=== PATIENT | female | born 1970 | race Caucasian/White ===

== ENCOUNTER 2017-01-21 14:22 | Emergency (ER) | payer BC ==
[2017-01-21] MEDS ORDERED: HYDROmorphone 1 MG/ML Syringe IVPUSH ONE (14:57)
[2017-01-21] MEDS ORDERED: Ondansetron 4 MG/2 ML SDV IVPUSH ONE (14:57)
[2017-01-21] MEDS ORDERED: Sodium Chloride 0.9% 1,000 ML IV SCH (15:00)
--- NOTE | 2017-01-21 15:12 | EDM.PDOC ---
ED HPI GENERAL MEDICAL PROBLEM - General Chief Complaint: Abdominal Pain Stated Complaint: ABDOMINAL PAIN Time Seen by Provider: 01/21/17 14:30 Source of Information: Reports: Patient, Family (), RN Notes Reviewed History Limitations: Reports: No Limitations - History of Present Illness INITIAL COMMENTS - FREE TEXT/NARRATIVE: The patient states that she developed left-sided abdominal pain today, although was having some gassy discomfort yesterday. She describes today's pain as sharp in character. It has been waxing and waning. She states that it feels better if she presses on her left abdomen, otherwise, she has not identified any modifiers. She had some loose stools last night and earlier today, but no true diarrhea. No recent fever, nausea, vomiting, constipation, or urinary symptoms. No prior similar symptoms. The patient's last oral solid food was around 09:00 this morning. Her last oral liquid was around 14:10 this afternoon. The patient states that she underwent an EGD and colonoscopy in April 2016, which found only a single polyp, she believes in the stomach, and was otherwise normal. The patient's PCP is Dr. Gabriela Jackson. Left Lower Abdomen Pain Score (Numeric/FACES): 7 - Related Data Allergies Allergy/AdvReac Type Severity Reaction Status Date / Time codeine Allergy Hallucinati Verified 02/03/14 20:06 ons Home Meds: Home Meds Clonidine. 02/03/14 [History] Diclofenac. 02/03/14 [History] Past Medical History Cardiovascular History: Reports: High Cholesterol, Hypertension Genitourinary History: Reports: Chronic Renal Insuffiency, Urinary Incontinence (stress incontinence) Neurological History: Reports: Other (See Below) (Tic disorder) Endocrine/Metabolic History: Reports: Hypothyroidism (following thyroidectomy), Obesity/BMI 30+ Hematologic History: Reports: Anemia, Iron Deficiency Oncologic (Cancer) History: Reports: Cervix (BHASKAR), Leukemia (CLL), Thyroid (S/P thyroidectomy) - Past Surgical History HEENT Surgical History: Reports: Oral Surgery ([place] teeth extraction) Female Surgical History: Reports: Breast Reduction (bilateral), Other (See Below) (Cervical diathermy) Endocrine Surgical History: Reports: Thyroidectomy Social & Family History - Tobacco Use Smoking Status *Q: Never Smoker Second Hand Smoke Exposure: No - Caffeine Use Caffeine Use: Reports: Soda - Alcohol Use Alcohol Use History: Yes Days Per Week of Alcohol Use: 0 Alcohol Use Frequency: Rarely - Recreational Drug Use Recreational Drug Use: No - Living Situation & Occupation Living situation: Reports: , with Spouse, with Family (2 kids) Occupation: Unemployed ED ROS GENERAL - Review of Systems Review Of Systems: See Below Constitutional: Reports: No Symptoms HEENT: Reports: No Symptoms Respiratory: Reports: No Symptoms Cardiovascular: Reports: No Symptoms Endocrine: Reports: No Symptoms GI/Abdominal: Reports: No Symptoms : Reports: No Symptoms Musculoskeletal: Reports: No Symptoms Skin: Reports: No Symptoms Neurological: Reports: No Symptoms Psychiatric: Reports: No Symptoms Hematologic/Lymphatic: Reports: No Symptoms Immunologic: Reports: No Symptoms ED EXAM, GI/ABD - Physical Exam Exam: See Below Exam Limited By: No Limitations General Appearance: Alert, WD/WN, No Apparent Distress Eyes: Bilateral: Normal Appearance, EOMI Ears: Normal External Exam, Hearing Grossly Normal Nose: Normal Inspection, No Blood Throat/Mouth: Normal Inspection, Normal Lips, Normal Voice, No Airway Compromise Head: Atraumatic, Normocephalic Neck: Normal Inspection, Full Range of Motion Respiratory/Chest: No Respiratory Distress, Lungs Clear, Normal Breath Sounds, No Accessory Muscle Use Cardiovascular: Normal Peripheral Pulses, Regular Rate, Rhythm, No Gallop, No JVD, No Murmur, No Rub GI/Abdominal Exam: Soft, No Organomegaly, No Distention, No Abnormal Bruit, No Mass, Pelvis Stable, Tender (From the left upper quadrant through to the left lower quadrant, and including the suprapubic region. Nontender on the right.), Abnormal Bowel Sounds (Decreased bowel sounds), Other (Obese) (Female) Exam: Deferred Rectal (Female) Exam: Deferred Back Exam: Normal Inspection, Full Range of Motion. No: CVA Tenderness (L), CVA Tenderness (R) Extremities: Normal Inspection, Normal Range of Motion, No Pedal Edema, Normal Capillary Refill Neurological: Alert, Oriented, Normal Cognition, No Motor/Sensory Deficits Psychiatric: Normal Affect Skin Exam: Warm, Dry, Intact, Normal Color, No Rash Lymphatic: No Adenopathy Course - Vital Signs Last Recorded V/S: Last Vital Signs Temp 37.1 C 01/21/17 14:29 Pulse 102 H 01/21/17 14:29 Resp 18 01/21/17 14:29 BP 167/106 H 01/21/17 14:29 Pulse Ox 96 01/21/17 14:29 - Orders/Labs/Meds Orders: Active Orders 24 hr Category Date Time Status Abdomen Pelvis w Cont [CT] Stat Exams 01/21/17 14:57 Taken CULTURE URINE [RM] Stat Lab 01/21/17 15:10 Received Sodium Chloride 0.9% [Normal Saline] 1,000 ml Med 01/21/17 15:00 Active IV ASDIRECTED Sodium Chloride 0.9% [Saline Flush] Med 01/21/17 17:26 Active 10 ml FLUSH ONETIME PRN Medication Orders Sodium Chloride (Normal Saline) 1,000 mls @ 150 mls/hr IV ASDIRECTED GARTH Last Admin: 01/21/17 15:53 Dose: 150 mls/hr Sodium Chloride (Saline Flush) 10 ml FLUSH ONETIME PRN PRN Reason: IV FLUSH Last Admin: 01/21/17 17:48 Dose: 10 ml Labs: Laboratory Tests 01/21/17 01/21/17 01/21/17 Range/Units 15:10 15:10 15:15 WBC 12.04 H (3.98-10.04) K/mm3 RBC 5.29 H (3.98-5.22) M/mm3 Hgb 14.2 (11.2-15.7) gm/L Hct 43.0 (34.1-44.9) % MCV 81.3 (79.4-94.8) fl MCH 26.8 (25.6-32.2) pg MCHC 33.0 (32.2-35.5) g/dl RDW Std Deviation 40.3 (36.4-46.3) fL Plt Count 146 L (182-369) K/mm3 MPV 9.4 (9.4-12.3) fl Neutrophils % (Manual) 53 (40-60) % Band Neutrophils % 2 (0-10) % Lymphocytes % (Manual) 38 (20-40) % Atypical Lymphs % 0 % Monocytes % (Manual) 6 (2-10) % Eosinophils % (Manual) 1 (0.7-5.8) % Basophils % (Manual) 0 L (0.1-1.2) Platelet Estimate Adequate Plt Morphology Comment Normal RBC Morph Comment Normal Sodium (136-145) mEq/L Potassium (3.5-5.1) mEq/L Chloride (98-107) mEq/L Carbon Dioxide (21-32) mEq/L Anion Gap (5-15) BUN (7-18) mg/dL Creatinine (0.55-1.02) mg/dL Est Cr Clr Drug Dosing mL/min Estimated GFR (MDRD) (>60) mL/min BUN/Creatinine Ratio (14-18) Glucose (74-106) mg/dL Calcium (8.5-10.1) mg/dL Total Bilirubin (0.2-1.0) mg/dL AST (15-37) U/L ALT (14-59) U/L Alkaline Phosphatase (46-116) U/L Total Protein (6.4-8.2) g/dl Albumin (3.4-5.0) g/dl Globulin gm/dL Albumin/Globulin Ratio (1-2) Lipase (73-393) U/L Urine Color Yellow (Yellow) Urine Appearance Clear (Clear) Urine pH 7.0 (5.0-8.0) Ur Specific Stewart 1.020 (1.005-1.030) Urine Protein 1+ H (Negative) Urine Glucose (UA) Negative (Negative) Urine Ketones Negative (Negative) Urine Occult Blood Negative (Negative) Urine Nitrite Negative (Negative) Urine Bilirubin Negative (Negative) Urine Urobilinogen 0.2 (0.2-1.0) Ur Leukocyte Esterase Trace H (Negative) Urine RBC 0-5 (0-5) /hpf Urine WBC 0-5 (0-5) /hpf Ur Epithelial Cells 10-20 H (0-5) /hpf Urine Bacteria Moderate H (FEW) /hpf Urine Mucus Few (FEW) /hpf Urine HCG, Qual Negative (NEGATIVE) 01/21/17 Range/Units 15:15 WBC (3.98-10.04) K/mm3 RBC (3.98-5.22) M/mm3 Hgb (11.2-15.7) gm/L Hct (34.1-44.9) % MCV (79.4-94.8) fl MCH (25.6-32.2) pg MCHC (32.2-35.5) g/dl RDW Std Deviation (36.4-46.3) fL Plt Count (182-369) K/mm3 MPV (9.4-12.3) fl Neutrophils % (Manual) (40-60) % Band Neutrophils % (0-10) % Lymphocytes % (Manual) (20-40) % Atypical Lymphs % % Monocytes % (Manual) (2-10) % Eosinophils % (Manual) (0.7-5.8) % Basophils % (Manual) (0.1-1.2) Platelet Estimate Plt Morphology Comment RBC Morph Comment Sodium 136 (136-145) mEq/L Potassium 4.2 (3.5-5.1) mEq/L Chloride 105 (98-107) mEq/L Carbon Dioxide 21 (21-32) mEq/L Anion Gap 14.2 (5-15) BUN 11 (7-18) mg/dL Creatinine 0.7 (0.55-1.02) mg/dL Est Cr Clr Drug Dosing 102.38 mL/min Estimated GFR (MDRD) > 60 (>60) mL/min BUN/Creatinine Ratio 15.7 (14-18) Glucose 111 H (74-106) mg/dL Calcium 8.7 (8.5-10.1) mg/dL Total Bilirubin 1.0 (0.2-1.0) mg/dL AST 22 (15-37) U/L ALT 24 (14-59) U/L Alkaline Phosphatase 69 (46-116) U/L Total Protein 7.3 (6.4-8.2) g/dl Albumin 3.8 (3.4-5.0) g/dl Globulin 3.5 gm/dL Albumin/Globulin Ratio 1.1 (1-2) Lipase 129 (73-393) U/L Urine Color (Yellow) Urine Appearance (Clear) Urine pH (5.0-8.0) Ur Specific Stewart (1.005-1.030) Urine Protein (Negative) Urine Glucose (UA) (Negative) Urine Ketones (Negative) Urine Occult Blood (Negative) Urine Nitrite (Negative) Urine Bilirubin (Negative) Urine Urobilinogen (0.2-1.0) Ur Leukocyte Esterase (Negative) Urine RBC (0-5) /hpf Urine WBC (0-5) /hpf Ur Epithelial Cells (0-5) /hpf Urine Bacteria (FEW) /hpf Urine Mucus (FEW) /hpf Urine HCG, Qual (NEGATIVE) Meds: Medications Generic Name Dose Route Start Last Admin Trade Name Freq PRN Reason Stop Dose Admin Sodium Chloride 1,000 mls @ 150 mls/hr 01/21/17 15:00 01/21/17 15:53 Normal Saline IV 150 mls/hr ASDIRECTED GARTH Administration Sodium Chloride 10 ml 01/21/17 17:26 01/21/17 17:48 Saline Flush FLUSH 10 ml ONETIME PRN Administration IV FLUSH Discontinued Medications Generic Name Dose Route Start Last Admin Trade Name Freq PRN Reason Stop Dose Admin Diatrizoate Meglum/Diatrizoate Sod 90 ml 01/21/17 17:26 01/21/17 17:48 Gastrografin 37% PO 01/21/17 17:27 90 ml ONETIME ONE Administration Hydromorphone HCl 1 mg 01/21/17 14:57 01/21/17 15:53 Dilaudid IVPUSH 01/21/17 14:58 1 mg ONETIME ONE Administration Iopamidol 125 ml 01/21/17 17:26 01/21/17 17:48 Isovue-300 (61%) IVPUSH 01/21/17 17:27 125 ml ONETIME ONE Administration Ondansetron HCl 4 mg 01/21/17 14:57 01/21/17 16:00 Zofran IVPUSH 01/21/17 14:58 4 mg ONETIME ONE Administration - Re-Assessments/Exams Free Text/Narrative Re-Assessment/Exam: 01/21/17 15:44 The patient's urinalysis demonstrates trace of is that esterase, 10-20 epithelial cells and moderate bacteria. I believe this is most consistent with contamination, not a UTI. I have ordered a urine culture, but I am not going to treat for a UTI based on this urinalysis. 01/21/17 18:54 CT of the abdomen and pelvis with oral and IV contrast is read by [facility] as: 1. 5.9 cm left ovarian cyst. This may be large enough to be producing left- sided abdominal pain. The cyst is a simple cyst and could be further evaluated with pelvic ultrasound if clinically indicated. 2. Nonspecific enlargement of the periaortic, iliac and inguinal lymph nodes. If clinically indicated the nodes could be further evaluated with PET scan. 01/21/17 18:58 Test results discussed with the patient and her . Today's workup indicates that the patient has a large left simple ovarian cyst. Treatment is ibuprofen. I will discharge her home. Departure - Departure Time of Disposition: 18:59 Disposition: Home, Self-Care 01 Condition: Good Clinical Impression: Left ovarian cyst - Discharge Information Referrals: Gabriela Jackson DO [Primary Care Provider] - Forms: ED Department Discharge Additional Instructions: You were seen in the emergency room for left-sided abdominal pain. Workup in the ER included blood work, a urinalysis, a urine test, and a CT scan of your abdomen and pelvis. The CT scan findings that you have a 5.9 cm left ovarian simple cyst, which is likely the cause of your pain. We recommend he take [id number] ibuprofen as needed for discomfort. A sample of urine was sent for culture. We recommend you follow-up with your PCP, Dr. Gabriela Jackson, in 3 days to check on the urine culture results, to make sure that you do not have a urinary tract infection. If any other problems, please do not hesitate to return to the ER. - My Orders Last 24 Hours: My Active Orders 01/21/17 14:57 Abdomen Pelvis w Cont [CT] Stat 01/21/17 15:00 Sodium Chloride 0.9% [Normal Saline] 1,000 ml IV ASDIRECTED 01/21/17 15:10 CULTURE URINE [RM] Stat 01/21/17 17:26 Sodium Chloride 0.9% [Saline Flush] 10 ml FLUSH ONETIME PRN - Assessment/Plan Last 24 Hours: My Active Orders 01/21/17 14:57 Abdomen Pelvis w Cont [CT] Stat 01/21/17 15:00 Sodium Chloride 0.9% [Normal Saline] 1,000 ml IV ASDIRECTED 01/21/17 15:10 CULTURE URINE [RM] Stat 01/21/17 17:26 Sodium Chloride 0.9% [Saline Flush] 10 ml FLUSH ONETIME PRN
[2017-01-21] MEDS ORDERED: Diatrizoate Meglumine/Diatrizoate Sodium 37% 120 ML Bottle PO ONE (17:26)
[2017-01-21] MEDS ORDERED: Iopamidol 612 MG/ML 150 ML Bottle IVPUSH ONE (17:26)
[2017-01-21] MEDS ORDERED: Sodium Chloride 0.9% 10 ML Syringe FLUSH PRN (17:26)
[2017-01-21 19:24] VITALS: BP 135/83
--- NOTE | 2017-01-22 08:33 | CT ---
CT abdomen and pelvis Technique: Multiple axial sections were obtained from above the dome of the diaphragm inferiorly through the pubic symphysis. Intravenous and oral contrast was utilized. Delayed images were also obtained through the bladder. Comparison: No previous CT abdomen or pelvis exam. Findings: Visualized lung bases show nothing acute. Liver shows no focal abnormality. Spleen appears within normal limits. Adrenal glands show no nodule. Pancreas is within normal limits. Kidneys show symmetric contrast enhancement without hydronephrosis or mass. Aorta shows no aneurysmal dilatation. Mildly prominent retroperitoneal lymph nodes are seen. Lymph nodes are seen to extend into the iliac chain. Largest lymph node is about 3.0 cm. No mesenteric abnormalities are seen. Appendix is seen which appears normal. 6 cm cyst is identified within the left ovary. No free fluid is seen. No inflammatory change is identified. No bowel dilatation is seen. Delayed images show contrast within the distal ureters and within the bladder. Bone window settings were reviewed appearing within normal limits for the patient's age. Impression: 1. Mildly prominent retroperitoneal and iliac lymph nodes. Largest lymph node measures about 3.0 cm. Difficult to exclude early lymphoproliferative neoplasm. Consider PET scan to further evaluate. 2. 6 cm cyst within the left ovary without evidence of rupture or leakage at this time. 3. No additional abnormality is identified on CT study of the abdomen and pelvis. Diagnostic code #9 I agree with preliminary report issued by [facility] ([facility] preliminary report dictated on 01/21/17, 7:39 PM Central Time)
== END 2017-01-21 19:15 | disposition home or self-care (01) ==
LOC: EEVIPCON 14:22 → JD.ED 14:22
DX: N83.202 Unspecified ovarian cyst, left side (principal); I12.9 Hypertensive chronic kidney disease with stage 1 through stage 4 chronic kidney disease, or unspecified chronic kidney disease; E78.00 Pure hypercholesterolemia, unspecified; N18.9 Chronic kidney disease, unspecified; E03.9 Hypothyroidism, unspecified; E66.9 Obesity, unspecified; Z86.2 Personal history of diseases of the blood and blood-forming organs and certain disorders involving the immune mechanism; Z88.5 Allergy status to narcotic agent; Z98.890 Other specified postprocedural states; Z68.38 Body mass index [BMI] 38.0-38.9, adult
CPT/HCPCS: 36415; 74177; 80053; 81001; 81025; 83690; 85025; 87086; 96361; 96374; 96375; 99284; J1170; J2405; J7040; J7050; P9612; Q9963; Q9967

== ENCOUNTER 2017-11-22 15:42 | Emergency (ER) | payer SELFPAY ==
[2017-11-22 16:12] VITALS: BP 134/94
--- NOTE | 2017-11-22 18:00 | EDM.PDOC ---
<Lidia Cannon M - Last Filed: 11/22/17 17:50> ED HPI GENERAL MEDICAL PROBLEM - General Chief Complaint: Respiratory Problem Stated Complaint: COUGH/RUNNY NOSE X 6 WKS Time Seen by Provider: 11/22/17 18:15 Source of Information: Reports: Patient History Limitations: Reports: No Limitations - History of Present Illness INITIAL COMMENTS - FREE TEXT/NARRATIVE: Patient comes in today for chief complaint of cough, rhinorrhea, and fatigue. Patient has had a cough for six weeks, she was seen by her PCP two weeks ago who prescribed Azithromycin. Patient did not experience much relief of symptoms since completing the abx within the last 1-2 weeks. Over the last three days, she has been feeling increasingly fatigued and weak. Associated symptoms include fatigue, cough, clear/yellow sputum, rhinorrhea, sinus congestion, and sinus pressure. Patient has tried taking Mucinex for the last week and tried a emilee pot today. The mucinex helped alleviate her symptoms initially. Patient denies fever, sore throat, nausea, vomiting, or constipation. Onset: Other (6 weeks ago) Duration: Chronic, Getting Worse Improves with: Reports: None Associated Symptoms: Reports: Cough. Denies: Fever/Chills, Nausea/Vomiting, Shortness of Breath Treatments BREAKER LAYER: Reports: Home Treatments (Mucinex and emilee pot) Chest Pain Score (Numeric/FACES): 4 - Related Data Allergies Allergy/AdvReac Type Severity Reaction Status Date / Time codeine Allergy Hallucinati Verified 02/03/14 20:06 ons Home Meds: Home Meds Amoxicillin/Clavulanate K [Augmentin 875-125 MG] 1 tab PO BID #20 tab 11/22/17 [ Rx] Diclofenac Sodium [Voltaren] 50 mg PO BID 11/22/17 [History] Fluticasone Propionate [Flovent] 2 spray INH DAILY 11/22/17 [History] Levothyroxine 75 mcg PO DAILY 11/22/17 [History] Losartan Potassium 25 mg PO DAILY 11/22/17 [History] methylPREDNISolone [Methylprednisolone] 4 mg PO ASDIRECTED 11/22/17 [History] Past Medical History Cardiovascular History: Reports: High Cholesterol, Hypertension Genitourinary History: Reports: Chronic Renal Insuffiency, Urinary Incontinence Neurological History: Reports: Other (See Below) Endocrine/Metabolic History: Reports: Hypothyroidism, Obesity/BMI 30+ Hematologic History: Reports: Anemia, Iron Deficiency Oncologic (Cancer) History: Reports: Cervix, Leukemia, Thyroid - Past Surgical History HEENT Surgical History: Reports: Oral Surgery Female Surgical History: Reports: Breast Reduction, Other (See Below) Endocrine Surgical History: Reports: Thyroidectomy Social & Family History - Tobacco Use Smoking Status *Q: Never Smoker - Caffeine Use Caffeine Use: Reports: Soda - Recreational Drug Use Recreational Drug Use: No - Living Situation & Occupation Living situation: Reports: , with Spouse, with Family (2 kids) Occupation: Unemployed ED ROS GENERAL - Review of Systems Constitutional: Reports: Fatigue. Denies: Fever, Chills, Diaphoresis HEENT: Reports: Rhinitis. Denies: Throat Pain Respiratory: Reports: Cough, Sputum. Denies: Shortness of Breath, Wheezing Cardiovascular: Denies: Chest Pain GI/Abdominal: Denies: Abdominal Pain, Constipation, Diarrhea, Nausea, Vomiting ED EXAM, GENERAL - Physical Exam Exam Limited By: No Limitations General Appearance: Alert, WD/WN, No Apparent Distress Nose: Nasal Drainage, Clear Rhinorrhea, Other (boggy, erythematous nasal mucosa bilaterally) Neck: Normal Inspection, Supple, Non-Tender Respiratory/Chest: No Respiratory Distress, Lungs Clear, Normal Breath Sounds, No Accessory Muscle Use, Chest Non-Tender. No: Decreased Breath Sounds, Crackles, Rales, Rhonchi, Wheezing, Stridor, Pleural Rub, Accessory Muscle Use, Prolonged Expiration Cardiovascular: Normal Peripheral Pulses, Regular Rate, Rhythm, No Murmur GI/Abdominal: Normal Bowel Sounds, Soft, Non-Tender, No Distention Course - Vital Signs Last Recorded V/S: Last Vital Signs Temp 98.1 F 11/22/17 16:10 Pulse 94 11/22/17 16:10 Resp 20 11/22/17 16:10 BP 134/94 H 11/22/17 16:10 Pulse Ox 97 11/22/17 16:10 - Orders/Labs/Meds Labs: Laboratory Tests 11/22/17 11/22/17 11/22/17 Range/Units 17:21 18:35 18:35 WBC 10.03 (3.98-10.04) K/mm3 RBC 5.27 H (3.98-5.22) M/mm3 Hgb 13.3 (11.2-15.7) gm/L Hct 40.5 (34.1-44.9) % MCV 76.9 L (79.4-94.8) fl MCH 25.2 L (25.6-32.2) pg MCHC 32.8 (32.2-35.5) g/dl RDW Std Deviation 39.0 (36.4-46.3) fL Plt Count 181 L (182-369) K/mm3 MPV 8.7 L (9.4-12.3) fl Neutrophils % (Manual) 59 (40-60) % Band Neutrophils % 0 (0-10) % Lymphocytes % (Manual) 25 (20-40) % Atypical Lymphs % 0 % Monocytes % (Manual) 11 H (2-10) % Eosinophils % (Manual) 4 (0.7-5.8) % Basophils % (Manual) 1 (0.1-1.2) Platelet Estimate Adequate Plt Morphology Comment Normal Microcytosis 3+ marked RBC Morph Comment Not Reportable Sodium 138 (136-145) mEq/L Potassium 3.7 (3.5-5.1) mEq/L Chloride 102 (98-107) mEq/L Carbon Dioxide 22 (21-32) mEq/L Anion Gap 17.7 H (5-15) BUN 7 (7-18) mg/dL Creatinine 0.7 (0.55-1.02) mg/dL Est Cr Clr Drug Dosing 101.30 mL/min Estimated GFR (MDRD) > 60 (>60) mL/min BUN/Creatinine Ratio 10.0 L (14-18) Glucose 96 (74-106) mg/dL Calcium 8.6 (8.5-10.1) mg/dL Total Bilirubin 0.5 (0.2-1.0) mg/dL AST 19 (15-37) U/L ALT 20 (14-59) U/L Alkaline Phosphatase 77 (46-116) U/L Total Protein 7.5 (6.4-8.2) g/dl Albumin 3.8 (3.4-5.0) g/dl Globulin 3.7 gm/dL Albumin/Globulin Ratio 1.0 (1-2) Urine Color Yellow (Yellow) Urine Appearance Clear (Clear) Urine pH 7.0 (5.0-8.0) Ur Specific [place] 1.020 (1.005-1.030) Urine Protein 1+ H (Negative) Urine Glucose (UA) Negative (Negative) Urine Ketones Negative (Negative) Urine Occult Blood Negative (Negative) Urine Nitrite Negative (Negative) Urine Bilirubin Negative (Negative) Urine Urobilinogen 1.0 (0.2-1.0) Ur Leukocyte Esterase Negative (Negative) Urine RBC 0-5 (0-5) /hpf Urine WBC 5-10 H (0-5) /hpf Ur Epithelial Cells 5-10 H (0-5) /hpf Urine Bacteria Few (FEW) /hpf Urine Mucus Moderate H (FEW) /hpf Departure - Departure Disposition: Home, Self-Care 01 Clinical Impression: Sinusitis - Discharge Information Prescriptions: Amoxicillin/Clavulanate K [Augmentin 875-125 MG] 1 tab PO BID #20 tab Instructions: Sinusitis, Adult, [id number] Referrals: Олег Cherry MD [Primary Care Provider] - Forms: ED Department Discharge Additional Instructions: take the augmentin 1 tab PO bid x 10 days. Take with food. Recommend yogurt or a probiotic to help reduce side effects of upset stomach. recommend OTC afrin. Take as directed. Do not take more than 5 days in a row. Follow-up with PCP or ENT in 7-14 days for a recheck of your symptoms. OTC tylneol or motrin as needed for discomfort. Rest. Make sure you are drinking plenty of fluids. Please return to the ER should your symptoms change or worsen. <Annette Eric - Last Filed: 11/24/17 11:32> ED HPI GENERAL MEDICAL PROBLEM - History of Present Illness INITIAL COMMENTS - FREE TEXT/NARRATIVE: I have seen the patient and agree with the HPI as documented by ANU Collins ED ROS GENERAL - Review of Systems Review Of Systems: See Below HEENT: Reports: Sinus Problem (reports sinuus pressure) Neurological: Reports: Headache ED EXAM, GENERAL - Physical Exam Exam: See Below General Appearance: Other (acutely ill appearing) Eye Exam: Bilateral Eye: Normal Inspection Ears: Normal External Exam, Normal Canal, Hearing Grossly Normal, Normal TMs Throat/Mouth: Normal Inspection, Normal Lips, Normal Oropharynx, Normal Voice, No Airway Compromise Head: Sinus Tenderness (bilateral maxillary sinus pressure) Neurological: Alert, Oriented, Normal Cognition Psychiatric: Normal Affect, Normal Mood Skin Exam: Warm, Dry, Normal Color Course - Radiology Interpretation Free Text/Narrative:: CT of the max face without contract impression per [facility]: Bilateral ethmoid sinusitis. Mild inflammatory changes the maxillary and right sphenoid sinuses. chest xray shows no acute intrathroacic process. - Re-Assessments/Exams Free Text/Narrative Re-Assessment/Exam: 11/22/17 18:35 I have seen the patient and agree with the HPI, ROS and PE as documented by ANU Collins. Recommending a CT of the sinuses due to the length of her symptoms and no response to antibiotics. I believe the cough she is experiencing is more from post nasal drip. Patient is in agreement. 11/22/17 20:17 I reviewed the labs and imaging with the patient. Will start on augmentin for a sinus infection. Follow-up in clinic. Recommended a few days of afrin for the congestion. Discharge instructions as documented. Departure - Departure Time of Disposition: 20:17 Condition: Fair
--- NOTE | 2017-11-25 11:15 | CT ---
CT paranasal sinuses Technique: Multiple axial sections through the paranasal sinuses were obtained. Reconstructed coronal and sagittal images were reviewed. Findings: Mild mucosal thickening is seen within the ethmoid sinuses. Moderate mucosal thickening is seen within the ethmoid sinuses as well as mild mucosal thickening within the right side of the sphenoid sinus. No air-fluid levels are seen. Ost[place] of the left maxillary sinus shows mucosal thickening with lesser mucosal thickening within the ostia of the right maxillary sinus. No nasal septal deviation is seen. No acute bony abnormality is seen. Impression: 1. Sinus findings as noted above most likely chronic. Diagnostic code #3 I agree with preliminary report from [facility], finalized at 11/22/17, 8:57 PM Central Time
--- NOTE | 2017-11-25 11:15 | CR ---
Chest: Two views of the chest were obtained. Comparison: Prior chest x-ray of 02/03/14. Heart size and mediastinum are normal. Lungs are clear. Minimal scoliosis is seen. Surgical clips are seen on the lateral view. Impression: 1. Nothing acute is seen on two-view chest x-ray. Diagnostic code #2
== END 2017-11-22 20:31 | disposition home or self-care (01) ==
LOC: JD.ED 15:42
DX: J32.9 Chronic sinusitis, unspecified (principal); I12.9 Hypertensive chronic kidney disease with stage 1 through stage 4 chronic kidney disease, or unspecified chronic kidney disease; N18.9 Chronic kidney disease, unspecified; E03.9 Hypothyroidism, unspecified; D50.9 Iron deficiency anemia, unspecified; Z88.5 Allergy status to narcotic agent; Z79.899 Other long term (current) drug therapy
CPT/HCPCS: 36415; 70486; 70486-26; 71046; 71046-26; 80053; 81001; 85007; 85027; 99284-25

== ENCOUNTER 2020-03-16 18:29 | Emergency (ER) | payer MEDICARE ==
[2020-03-16 18:48] VITALS: BP 195/96; PULSE 85
--- NOTE | 2020-03-16 21:05 | EDM.PDOC ---
ED HPI GENERAL MEDICAL PROBLEM - General Chief Complaint: Respiratory Problem Stated Complaint: LUNGS FEEL HOT SOB Time Seen by Provider: 03/16/20 19:13 Source of Information: Reports: Patient, RN Notes Reviewed - History of Present Illness INITIAL COMMENTS - FREE TEXT/NARRATIVE: 49 yr old female with cough, burning discomfort upper chest for about the past 4 days. she has 2 children at home and a who have been having sx suggestive for covid with cough, fever, myalgias for about the past 10 days. They have all been isolating. She does not feel that sick but with her past health hx has been advised, make sure she doesnt have pneumonia. - Related Data Allergies Allergy/AdvReac Type Severity Reaction Status Date / Time cefdinir Allergy Other Verified 03/16/20 18:48 codeine Allergy Hallucinati Verified 03/16/20 18:48 ons lisinopril Allergy Other Verified 03/16/20 18:48 Home Meds: Home Meds Diclofenac Sodium [Voltaren] 50 mg PO BID PRN 11/22/17 [History] Fluticasone Propionate [Flovent] 2 spray INH DAILY 11/22/17 [History] Levothyroxine 75 mcg PO DAILY 11/22/17 [History] Losartan Potassium 25 mg PO DAILY 11/22/17 [History] Cyclobenzaprine [Flexeril] 5 mg PO TID PRN 03/16/20 [History] Ferrous Sulfate [Iron] 325 mg PO DAILY 03/16/20 [History] Omeprazole 20 mg PO BEDTIME 03/16/20 [History] Past Medical History Cardiovascular History: Reports: High Cholesterol, Hypertension Genitourinary History: Reports: Chronic Renal Insuffiency, Urinary Incontinence Neurological History: Reports: Other (See Below) Endocrine/Metabolic History: Reports: Hypothyroidism, Obesity/BMI 30+ Hematologic History: Reports: Anemia, Iron Deficiency Oncologic (Cancer) History: Reports: Cervix, Leukemia, Thyroid - Past Surgical History HEENT Surgical History: Reports: Oral Surgery Female Surgical History: Reports: Breast Reduction Endocrine Surgical History: Reports: Thyroidectomy Social & Family History - Tobacco Use Tobacco Use Status *Q: Never Tobacco User - Caffeine Use Caffeine Use: Reports: Soda - Recreational Drug Use Recreational Drug Use: No - Living Situation & Occupation Living situation: Reports: , with Spouse, with Family (2 kids) Occupation: Unemployed ED ROS GENERAL - Review of Systems Review Of Systems: See Below Constitutional: Denies: Fever, Chills HEENT: Reports: Rhinitis. Denies: Throat Pain Respiratory: Reports: Cough (occasional). Denies: Shortness of Breath Cardiovascular: Reports: Chest Pain (burning discomfort upper chest) GI/Abdominal: Denies: Abdominal Pain, Diarrhea, Vomiting Musculoskeletal: Reports: No Symptoms Skin: Reports: No Symptoms Neurological: Reports: No Symptoms ED EXAM, GENERAL - Physical Exam Exam: See Below General Appearance: Alert, No Apparent Distress Head: Atraumatic Neck: Supple Respiratory/Chest: No Respiratory Distress, Lungs Clear, Normal Breath Sounds. No: Rhonchi, Wheezing Cardiovascular: Regular Rate, Rhythm Extremities: Normal Inspection, Normal Range of Motion Neurological: Alert, Oriented, No Motor/Sensory Deficits Skin Exam: Warm, Dry, Normal Color Course - Vital Signs Last Recorded V/S: Last Vital Signs Temp 97.1 F 03/16/20 18:45 Pulse 85 03/16/20 18:45 Resp 18 03/16/20 18:45 BP 195/96 H 03/16/20 18:45 Pulse Ox 98 03/16/20 18:45 - Orders/Labs/Meds Orders: Active Orders 24 hr Category Date Time Status Chest 1V Frontal [CR] Stat Exams 03/16/20 19:14 Taken CORONAVIRUS COVID-19 PCR PHL Stat Lab 03/16/20 21:24 Received - Re-Assessments/Exams Free Text/Narrative Re-Assessment/Exam: 03/16/20 22:47 CXR nl Departure - Departure Time of Disposition: 21:02 Disposition: Home, Self-Care 01 Condition: Fair Clinical Impression: Viral syndrome - Discharge Information Instructions: Viral Illness, Adult Referrals: Олег Cherry MD [Primary Care Provider] - Forms: ED Department Discharge Additional Instructions: Rest. Continue to self isolate. Return to ED as needed, especially for any severe difficulty breathing. Results from covid screen will be called to you as soon as they are available, usually 2 to 3 days. Sepsis Event Note (ED) - Evaluation Sepsis Screening Result: No Definite Risk - Focused Exam Vital Signs: Vital Signs Temp Pulse Resp BP Pulse Ox 03/16/20 18:45 97.1 F 85 18 195/96 H 98 - My Orders Last 24 Hours: My Active Orders 03/16/20 19:14 Chest 1V Frontal [CR] Stat 03/16/20 21:24 CORONAVIRUS COVID-19 PCR PHL Stat - Assessment/Plan Last 24 Hours: My Active Orders 03/16/20 19:14 Chest 1V Frontal [CR] Stat 03/16/20 21:24 CORONAVIRUS COVID-19 PCR PHL Stat
--- NOTE | 2020-03-17 16:26 | CR ---
PROCEDURE INFORMATION: Exam: XR Chest, 1 View Exam date and time: 03/16/2020 8:17 PM Age: 49 years old Clinical indication: Cough and dyspnea TECHNIQUE: Imaging protocol: XR of the chest Views: 1 view. COMPARISON: DX Chest 2V 11/22/2017 5:49 PM FINDINGS: Lungs: Unremarkable. No consolidation. Pleural space: Unremarkable. No pleural effusion. No pneumothorax. Heart/Mediastinum: Unremarkable. No cardiomegaly. Bones/joints: Unremarkable. IMPRESSION: No acute findings. Thank you for allowing us to participate in the care of your patient. Dictated and Authenticated by: Bijan Moreira MD 03/16/2020 10:02 PM Central Time (US & Thai) BHAVNA
== END 2020-03-16 21:22 | disposition home or self-care (01) ==
LOC: JD.ED 18:29
DX: B34.9 Viral infection, unspecified (principal); E78.00 Pure hypercholesterolemia, unspecified; I12.9 Hypertensive chronic kidney disease with stage 1 through stage 4 chronic kidney disease, or unspecified chronic kidney disease; N18.9 Chronic kidney disease, unspecified; E03.9 Hypothyroidism, unspecified; E66.9 Obesity, unspecified; Z88.1 Allergy status to other antibiotic agents; Z88.5 Allergy status to narcotic agent; Z88.8 Allergy status to other drugs, medicaments and biological substances; Z79.899 Other long term (current) drug therapy
CPT/HCPCS: 71045; 71045-26; 99283-25; U0002

== ENCOUNTER 2021-05-23 06:10 | Emergency (ER) | payer MEDICARE ==
[2021-05-23 06:27] VITALS: BP 179/102; PULSE 77
[2021-05-23] MEDS ORDERED: Sodium Chloride 0.9% 10 ML Syringe FLUSH PRN ×2 (07:17→07:48)
[2021-05-23] MEDS ORDERED: Ondansetron 4 MG/2 ML SDV IVPUSH ONE (07:19)
[2021-05-23] MEDS ORDERED: Sodium Chloride 0.9% 1,000 ML IV SCH (07:30)
[2021-05-23] MEDS: HYDROmorphone 1 MG/ML Syringe IVPUSH ONE ×2 (07:36→07:38)
--- NOTE | 2021-05-23 07:43 | EDM.PDOC ---
<Kavitha Suero - Last Filed: 05/23/21 09:19> ED HPI GENERAL MEDICAL PROBLEM - General Chief Complaint: Back Pain or Injury Stated Complaint: LOWER BACK PAIN Time Seen by Provider: 05/23/21 07:03 Source of Information: Reports: Patient, Significant Other History Limitations: Reports: No Limitations - History of Present Illness INITIAL COMMENTS - FREE TEXT/NARRATIVE: Mrs. Susan Conroy is a 50-year-old female who presents for evaluation of left quadrant pain. She feels the pain has progressed from a discomfort to full pain over the past few weeks. The pain starts on her side, almost back, and wraps towards the front. The pain comes in "waves", rating it between 7-10, describing it like "labor pains". The morning, she was awoken by a sensation to use the bathroom, after sitting on the toilet for "a long time" she was able to have a bowel movement. She is unsure if there was blood in the stool as she did not turn a light on. She has been having daily bowel movements. She feels "over bloated". She feels nothing makes it better or worse and has not tried anything. She reports nausea that started this morning, 1 episode of sweating 2 days ago, it was similar to her menopausal hot flashes. She denies fever, chills, cough, vomiting, blood in her urine, burning with urination, incontinence or changes in the force/frequency/color of urine, no urine odor. History includes enlarged spleen, left ovary cyst and a tick disorder. denies history of kidney stones, or abdominal surgeries. She is followed by Dr. Mccall for oncology, PCP Dr. Mitchell at [facility]. Onset: Gradual Duration: Week(s): Location: Reports: Abdomen, Back Improves with: Reports: None Worsens with: Reports: None Left Lower Back Pain Score (Numeric/FACES): 10 - Related Data Allergies Allergy/AdvReac Type Severity Reaction Status Date / Time cefdinir Allergy Other Verified 03/16/20 18:48 codeine Allergy Hallucinati Verified 03/16/20 18:48 ons lisinopril Allergy Other Verified 03/16/20 18:48 Home Meds: Home Meds Diclofenac Sodium [Voltaren] 50 mg PO BID PRN 11/22/17 [History] Fluticasone Propionate [Flovent] 2 spray INH DAILY PRN 11/22/17 [History] Levothyroxine 75 mcg PO DAILY 11/22/17 [History] Losartan Potassium 25 mg PO DAILY 11/22/17 [History] Cyclobenzaprine [Flexeril] 5 mg PO TID PRN 03/16/20 [History] Ferrous Sulfate [Iron] 325 mg PO DAILY 03/16/20 [History] Omeprazole 20 mg PO BEDTIME 03/16/20 [History] Hydrocodone/Acetaminophen [Hydrocodone-Acetamin 5-325 mg] 1 - 2 each PO Q6H PRN #15 tablet 05/23/21 [Rx] Tamsulosin HCl [Flomax] 0.4 mg PO DAILY #7 cap.er.24h 05/23/21 [Rx] Past Medical History Cardiovascular History: Reports: High Cholesterol, Hypertension Genitourinary History: Reports: Chronic Renal Insuffiency, Urinary Incontinence Neurological History: Reports: Other (See Below) Other Neuro History: Ticks Endocrine/Metabolic History: Reports: Hypothyroidism, Obesity/BMI 30+ Hematologic History: Reports: Anemia, Iron Deficiency Oncologic (Cancer) History: Reports: Cervix, Leukemia, Thyroid - Past Surgical History HEENT Surgical History: Reports: Oral Surgery Female Surgical History: Reports: Breast Reduction Endocrine Surgical History: Reports: Thyroidectomy Other Oncologic Surgeries/Procedures: Hx of chronic lymphocytic leukemia Social & Family History - Tobacco Use Tobacco Use Status *Q: Never Tobacco User Second Hand Smoke Exposure: No - Caffeine Use Caffeine Use: Reports: Soda - Recreational Drug Use Recreational Drug Use: No - Living Situation & Occupation Living situation: Reports: , with Spouse, with Family (2 kids) Occupation: Unemployed ED ROS GENERAL - Review of Systems Review Of Systems: Comprehensive ROS is negative, except as noted in HPI. Respiratory: Reports: No Symptoms Cardiovascular: Reports: No Symptoms Endocrine: Reports: No Symptoms GI/Abdominal: Reports: Abdominal Pain, Nausea. Denies: Diarrhea, Decreased Appetite, Vomiting : Reports: No Symptoms Musculoskeletal: Reports: Back Pain Skin: Reports: No Symptoms Neurological: Reports: No Symptoms Psychiatric: Reports: No Symptoms Hematologic/Lymphatic: Reports: No Symptoms ED EXAM, GI/ABD - Physical Exam Exam: See Below Exam Limited By: No Limitations General Appearance: Alert, Moderate Distress Throat/Mouth: Normal Inspection Head: Atraumatic, Normocephalic Neck: Normal Inspection, Supple Respiratory/Chest: No Respiratory Distress, Lungs Clear, Normal Breath Sounds Cardiovascular: Regular Rate, Rhythm, No Gallop, No Murmur, No Rub GI/Abdominal Exam: Soft, Tender, Abnormal Bowel Sounds (hypoactive), Mass (left lateral). No: Rebound Extremities: Normal Inspection Neurological: Alert, Oriented, Normal Cognition Psychiatric: Normal Affect Skin Exam: Warm, Dry, Intact Course - Re-Assessments/Exams Free Text/Narrative Re-Assessment/Exam: 05/23/21 07:50 Inital orders include CBC, CMP, lipase, bHCG, UA, CT abdomen/pelvis with contrast, IV, 0.9%NaCl, 1mg Dilaudid, 4mg Zofran. 05/23/21 09:08 CT Impressions, read by Dr. Yaya Rojas are as follows; 1. There is a mildly obstructing 3x3 mm calculus in the proximal left ureter with mild left hydronephrosis. 2. Bilateral nonobstructing intrarenal calculi 3. Retroperitoneal, pelvic, and bilateral inguinal lymphadenopathy associated with splenomegaly that is consistent with a history of leukemia. The lymphadenopathy has increased since 2017. 4. Borderline thickening of the uterine endometrium with a rounded nodule within the endometrial cavity measuring 1.7cm that could represent an endometrial polyp This was not demonstrated on previous CT imaging. Recommend ultrasound characterization. 5. Increase in size of simple left adnexal cyst measuring up to 10cm. This can also be evaluated at the time of ultrasound to confirm benign characteristics. 6. Hepatic steatosis. ------- CT report recommends ultrasound. These results discussed with patient and . Non-OB Transvaginal ultrasound ordered at this time. Departure - Departure Disposition: Home, Self-Care Clinical Impression: Kidney stone on left side, Ureteral calculus, left, Ureteral colic, Endometrial polyp, CLL (chronic lymphocytic leukemia) Ovarian cyst Qualifiers: Laterality: left Qualified Code(s): N83.202 - Unspecified ovarian cyst, left side - Discharge Information Prescriptions: Tamsulosin HCl [Flomax] 0.4 mg PO DAILY #7 cap.er.24h Hydrocodone/Acetaminophen [Hydrocodone-Acetamin 5-325 mg] 1 - 2 each PO Q6H PRN #15 tablet PRN Reason: Pain Referrals: Олег Cherry MD [Primary Care Provider] - Charles Mccall MD [Ordering Only Provider] - 1 Day Forms: ED Department Discharge Additional Instructions: Drink plenty of fluids. Take tylenol or motrin for pain. If that does not help try the hydrocodone. Take the flomax daily. Follow up with Dr Mccall today. Follow up with your doctor within a week. Please return if you are worse. Sepsis Event Note (ED) - Evaluation Sepsis Screening Result: No Definite Risk <Rafael Gonzales - Last Filed: 05/23/21 10:55> Course - Vital Signs Last Recorded V/S: Last Vital Signs Temp 96.5 F L 05/23/21 06:22 Pulse 77 05/23/21 06:22 Resp 22 H 05/23/21 06:22 BP 179/102 H 05/23/21 06:22 Pulse Ox 98 05/23/21 06:22 - Orders/Labs/Meds Orders: Active Orders 24 hr Category Date Time Status Peripheral IV Care [RC] . DIRECTED Care 05/23/21 07:18 Active Sodium Chloride 0.9% [Normal Saline] 1,000 ml Med 05/23/21 07:30 Active IV ASDIRECTED Sodium Chloride 0.9% [Saline Flush] Med 05/23/21 07:17 Active 10 ml FLUSH ASDIRECTED PRN Sodium Chloride 0.9% [Saline Flush] Med 05/23/21 07:48 Active 10 ml FLUSH ONETIME PRN Peripheral IV Insertion Adult [OM.PC] Routine Oth 05/23/21 07:17 Ordered Medication Orders Sodium Chloride (Normal Saline) 1,000 mls @ 150 mls/hr IV ASDIRECTED GARTH Last Admin: 05/23/21 07:36 Dose: 150 mls/hr Documented by: THEODORE Sodium Chloride (Sodium Chloride 0.9% 10 Ml Syringe) 10 ml FLUSH ASDIRECTED PRN PRN Reason: Keep Vein Open Last Admin: 05/23/21 07:36 Dose: 10 ml Documented by: DOMOMEL Sodium Chloride (Sodium Chloride 0.9% 10 Ml Syringe) 10 ml FLUSH ONETIME PRN PRN Reason: IV FLUSH Last Admin: 05/23/21 08:09 Dose: 10 ml Documented by: RAMYA Labs: Laboratory Tests 05/23/21 05/23/21 05/23/21 Range/Units 07:35 07:35 07:35 WBC 13.70 H (3.98-10.04) K/mm3 RBC 4.63 (3.98-5.22) M/mm3 Hgb 12.2 (11.2-15.7) gm/dl Hct 38.3 (34.1-44.9) % MCV 82.7 D (79.4-94.8) fl MCH 26.3 (25.6-32.2) pg MCHC 31.9 L (32.2-35.5) g/dl RDW Std Deviation 39.6 (36.4-46.3) fL Plt Count 209 (182-369) K/mm3 MPV 9.3 L (9.4-12.3) fl Neut % (Auto) 48.5 (34.0-71.1) % Lymph % (Auto) 46.9 (19.3-51.7) % [place] % (Auto) 3.9 L (4.7-12.5) % Eos % (Auto) 0.4 L (0.7-5.8) Baso % (Auto) 0.1 (0.1-1.2) % Neut # (Auto) 6.64 H (1.56-6.13) K/mm3 Lymph # (Auto) 6.43 H (1.18-3.74) K/mm3 [place] # (Auto) 0.53 H (0.24-0.36) K/mm3 Eos # (Auto) 0.05 (0.04-0.36) K/mm3 Baso # (Auto) 0.02 (0.01-0.08) K/mm3 Sodium 141 (136-145) mEq/L Potassium 3.9 (3.5-5.1) mEq/L Chloride 107 (98-107) mEq/L Carbon Dioxide 22 (21-32) mEq/L Anion Gap 15.9 H (5-15) BUN 12 (7-18) mg/dL Creatinine 0.8 (0.55-1.02) mg/dL Est Cr Clr Drug Dosing 85.81 mL/min Estimated GFR (MDRD) > 60 (>60) mL/min BUN/Creatinine Ratio 15.0 (14-18) Glucose 122 H (70-99) mg/dL Calcium 8.1 L (8.5-10.1) mg/dL Total Bilirubin 0.5 (0.2-1.0) mg/dL AST 13 L (15-37) U/L ALT 32 (14-59) U/L Alkaline Phosphatase 77 (46-116) U/L Total Protein 7.2 (6.4-8.2) g/dl Albumin 3.7 (3.4-5.0) g/dl Globulin 3.5 gm/dL Albumin/Globulin Ratio 1.1 (1-2) Lipase 96 (73-393) U/L HCG, Qual Negative (NEGATIVE) Urine Color (Yellow) Urine Appearance (Clear) Urine pH (5.0-8.0) Ur Specific [place] (1.005-1.030) Urine Protein (Negative) Urine Glucose (UA) (Negative) Urine Ketones (Negative) Urine Occult Blood (Negative) Urine Nitrite (Negative) Urine Bilirubin (Negative) Urine Urobilinogen (0.2-1.0) Ur Leukocyte Esterase (Negative) Urine RBC (0-5) /hpf Urine WBC (0-5) /hpf Ur Squamous Epith Cells (0-5) /hpf Urine Bacteria (FEW) /hpf Urine Mucus (FEW) /hpf 05/23/21 Range/Units 08:20 WBC (3.98-10.04) K/mm3 RBC (3.98-5.22) M/mm3 Hgb (11.2-15.7) gm/dl Hct (34.1-44.9) % MCV (79.4-94.8) fl MCH (25.6-32.2) pg MCHC (32.2-35.5) g/dl RDW Std Deviation (36.4-46.3) fL Plt Count (182-369) K/mm3 MPV (9.4-12.3) fl Neut % (Auto) (34.0-71.1) % Lymph % (Auto) (19.3-51.7) % [place] % (Auto) (4.7-12.5) % Eos % (Auto) (0.7-5.8) Baso % (Auto) (0.1-1.2) % Neut # (Auto) (1.56-6.13) K/mm3 Lymph # (Auto) (1.18-3.74) K/mm3 [place] # (Auto) (0.24-0.36) K/mm3 Eos # (Auto) (0.04-0.36) K/mm3 Baso # (Auto) (0.01-0.08) K/mm3 Sodium (136-145) mEq/L Potassium (3.5-5.1) mEq/L Chloride (98-107) mEq/L Carbon Dioxide (21-32) mEq/L Anion Gap (5-15) BUN (7-18) mg/dL Creatinine (0.55-1.02) mg/dL Est Cr Clr Drug Dosing mL/min Estimated GFR (MDRD) (>60) mL/min BUN/Creatinine Ratio (14-18) Glucose (70-99) mg/dL Calcium (8.5-10.1) mg/dL Total Bilirubin (0.2-1.0) mg/dL AST (15-37) U/L ALT (14-59) U/L Alkaline Phosphatase (46-116) U/L Total Protein (6.4-8.2) g/dl Albumin (3.4-5.0) g/dl Globulin gm/dL Albumin/Globulin Ratio (1-2) Lipase (73-393) U/L HCG, Qual (NEGATIVE) Urine Color Yellow (Yellow) Urine Appearance Clear (Clear) Urine pH 7.0 (5.0-8.0) Ur Specific [place] 1.015 (1.005-1.030) Urine Protein Negative (Negative) Urine Glucose (UA) Negative (Negative) Urine Ketones Negative (Negative) Urine Occult Blood 3+ H (Negative) Urine Nitrite Negative (Negative) Urine Bilirubin Negative (Negative) Urine Urobilinogen 0.2 (0.2-1.0) Ur Leukocyte Esterase Negative (Negative) Urine RBC >100 H (0-5) /hpf Urine WBC 0-5 (0-5) /hpf Ur Squamous Epith Cells 5-10 H (0-5) /hpf Urine Bacteria Few (FEW) /hpf Urine Mucus Not seen (FEW) /hpf Meds: Medications Generic Name Dose Route Start Last Admin Trade Name Freq PRN Reason Stop Dose Admin Sodium Chloride 1,000 mls @ 150 mls/hr 05/23/21 07:30 05/23/21 07:36 Normal Saline IV 150 mls/hr ASDIRECTED GARTH Administration Sodium Chloride 10 ml 05/23/21 07:17 05/23/21 07:36 Sodium Chloride 0.9% 10 Ml Syringe FLUSH 10 ml ASDIRECTED PRN Administration Keep Vein Open Sodium Chloride 10 ml 05/23/21 07:48 05/23/21 08:09 Sodium Chloride 0.9% 10 Ml Syringe FLUSH 10 ml ONETIME PRN Administration IV FLUSH Discontinued Medications Generic Name Dose Route Start Last Admin Trade Name Barronq PRN Reason Stop Dose Admin Hydromorphone HCl 1 mg 05/23/21 07:19 05/23/21 07:38 Hydromorphone 1 Mg/Ml Syringe IVPUSH 05/23/21 07:20 0.5 mg ONETIME ONE Administration Iopamidol 100 ml 05/23/21 07:48 05/23/21 08:09 Iopamidol 612 Mg/Ml 100 Ml Bottle IVPUSH 05/23/21 07:49 100 ml ONETIME ONE Administration Iopamidol 50 ml 05/23/21 07:48 05/23/21 08:09 Iopamidol 612 Mg/Ml 50 Ml Sdv IVPUSH 05/23/21 07:49 50 ml ONETIME ONE Administration Ondansetron HCl 4 mg 05/23/21 07:19 05/23/21 07:36 Ondansetron 4 Mg/2 Ml Sdv IVPUSH 05/23/21 07:20 4 mg ONETIME ONE Administration - Re-Assessments/Exams Free Text/Narrative Re-Assessment/Exam: 05/23/21 09:44 I examined the patient myself and I agree with Kavitha's assessment and plan. Her CT shows a kidney stone on the left and some endometrial thickening and possible polyp. She also has a left adnexal cyst. Her lymph nodes are also enlarged consistent with the leukemia. Her WBC was elevated at 13.7. Her anion gap is elevated at 15.9. Her lipase is normal. Her HCG is negative. Her UA shows blood but no UTI. I have ordered an US to look at her uterus and the cyst. 05/23/21 10:44 The US shows that there is a rounded echogenic soft tissue nodule centered in the endometrium measuring 2.4 X 1.8 X 2.5cm that correlates with the previous CT finding. This nodule demonstrates a small amount of vascular flow that is consistent with an endometrial polyp. Endometrial neoplasia is thought less likely due to the appearance. Recommend direct visualization and or sampling. Large simple left adnexal cyst measuring up to 9.9cm. Recommend follow-up pelvic US in 6 months per criteria. She is still doing gook. I will get her on flomax and hydrocodone. Departure - Departure Time of Disposition: 10:50 Condition: Good - Discharge Information *PRESCRIPTION DRUG MONITORING PROGRAM REVIEWED*: Not Applicable *COPY OF PRESCRIPTION DRUG MONITORING REPORT IN PATIENT TEENA: Not Applicable Sepsis Event Note (ED) - Focused Exam Vital Signs: Vital Signs Temp Pulse Resp BP Pulse Ox 05/23/21 06:22 96.5 F L 77 22 H 179/102 H 98 - My Orders Last 24 Hours: My Active Orders 05/23/21 07:48 Sodium Chloride 0.9% [Saline Flush] 10 ml FLUSH ONETIME PRN - Assessment/Plan Last 24 Hours: My Active Orders 05/23/21 07:48 Sodium Chloride 0.9% [Saline Flush] 10 ml FLUSH ONETIME PRN
[2021-05-23] MEDS ORDERED: Iopamidol 612 MG/ML 100 ML Bottle IVPUSH ONE (07:48)
[2021-05-23] MEDS ORDERED: Iopamidol 612 MG/ML 50 ML SDV IVPUSH ONE (07:48)
--- NOTE | 2021-05-23 10:26 | CT ---
EXAM: CT ABDOMEN PELVIS WITH CONTRAST LOCATION: [facility] [place] DATE/TIME: 05/23/2021 7:44 AM INDICATION: History of leukemia with left-sided abdominal pain. COMPARISON: CT 01/21/2017 TECHNIQUE: CT scan of the abdomen and pelvis was performed following injection of IV contrast. Multiplanar reformats were obtained. Dose reduction techniques were used. CONTRAST: Isovue 300, 125 mL FINDINGS: LOWER CHEST: Bilateral lower lobe atelectasis. HEPATOBILIARY: Diffuse hepatic steatosis. No significant mass. No bile duct dilatation. No calcified gallstones. PANCREAS: Normal. SPLEEN: The spleen is enlarged measuring 14 cm in craniocaudal dimension and 16.7 cm in AP dimension. This is similar to 2017. ADRENAL GLANDS: Normal. KIDNEYS/BLADDER: There is mild left hydronephrosis secondary to a 3 x 3 mm calculus in the proximal left ureter at approximately the inferior L3 level. Punctate nonobstructing left- sided calculus evident. There are nonobstructing stones in the right kidney measuring 2 mm or less. The left ureter beyond the stone is unremarkable. The right ureter is normal. Normal bladder. BOWEL: Normal with no obstruction or acute inflammatory change. Nothing for appendicitis. LYMPH NODES: There is retroperitoneal lymphadenopathy that extends into the bilateral iliac chains and the bilateral pelvis. Increase in number of bilateral inguinal lymph nodes that measure a normal size. The largest left common iliac chain lymph node measures 3.4 x 2.5 cm on image 60 compared to 2.2 x 1.5 cm in 2017. Right common iliac chain lymph node measures 2.9 x 1.9 cm on image 65. VASCULATURE: Unremarkable. PELVIC ORGANS: Borderline endometrial thickening at 16 mm with a rounded structure near the fundal endometrium measuring 1.7 cm that was not seen previously and could represent an endometrial polyp. Increase in size of a left adnexal simple cyst measuring 10.0 x 6.8 cm compared to 5.6 x 4.7 cm previously. Right adnexa is unremarkable. MUSCULOSKELETAL: Normal. IMPRESSION: 1. There is a mildly obstructing 3 x 3 mm calculus in the proximal left ureter with mild left hydronephrosis. 2. Bilateral nonobstructing intrarenal calculi. 3. Retroperitoneal, pelvic, and bilateral inguinal lymphadenopathy associated with splenomegaly that is consistent with a history of leukemia. The lymphadenopathy has increased since 2017. 4. Borderline thickening of the uterine endometrium with a rounded nodule within the endometrial cavity measuring 1.7 cm that could represent an endometrial polyp. This was not demonstrated on previous CT imaging. Recommend ultrasound characterization. 5. Increase in size of a simple left adnexal cyst measuring up to 10 cm. This can also be evaluated at the time of ultrasound to confirm benign characteristics. 6. Hepatic steatosis SIGNED BY: Yaya Rojas MD 05/23/2021 9:40 AM MTDD
--- NOTE | 2021-05-23 10:38 | US ---
EXAM: US TRANSVAGINAL LOCATION: [email or web address] [place] DATE/TIME: 05/23/2021 9:20 AM INDICATION: Follow up CT just done. Possible endometrial polyp and left ovary cyst. COMPARISON: CT 05/23/2021 TECHNIQUE: Endovaginal ultrasound was performed. FINDINGS: UTERUS: 11.0 x 6.3 x 5.1 cm. Normal in size and position with no masses. ENDOMETRIUM: 19 mm. Thickened endometrium there is a rounded hyperechoic area soft tissue centered at the endometrium with evidence of vascular flow measuring 2.4 x 1.8 x 2.5 cm. This correlates with the previous CT finding and suggests an endometrial polyp versus neoplasia. RIGHT OVARY: 4.0 x 2.6 x 2.8 cm. Normal with flow demonstrated. LEFT OVARY: 9.0 x 9.9 x 7.2 cm. There is very little normal ovarian tissue evident due to a large simple appearing cyst measuring 9.0 x 9.9 x 7.2 cm. No abnormal soft tissue or septations evident. No significant free fluid. IMPRESSION: 1. There is a rounded echogenic soft tissue nodule centered in the endometrium measuring 2.4 x 1.8 x 2.5 cm that correlates with the previous CT finding. This nodule demonstrates a small amount of vascular flow that is consistent with an endometrial polyp. Endometrial neoplasia is thought less likely due to the appearance. Recommend direct visualization and/or sampling. 2. Large simple left adnexal cyst measuring up to 9.9 cm. Recommend follow-up pelvic ultrasound in 6 months per criteria. Premenopausal asymptomatic simple cyst: <= 3 cm: Normal, no follow-up. >3 to <= 5 cm: Benign finding in the physiologic size range. No follow-up is needed. >5 to <= 7 cm: Benign simple cyst. Clinically inconsequential finding. Follow-up pelvic ultrasound in 6 months is recommended. >7 cm: Benign simple cyst. Follow-up pelvic ultrasound in 6 months is recommended. REFERENCE: Management of Asymptomatic Ovarian and Other Adnexal Cysts Imaged at US: Society of Radiologists in Ultrasound Consensus Conference Statement. Radiology January 2010; [phone] [phone]. Simple Adnexal Cysts: SRU Consensus Conference Update on Follow-up and Reporting. Radiology January 2019. [phone]. SIGNED BY: Yaya Rojas MD 05/23/2021 11:22 AM BHAVNA
== END 2021-05-23 11:12 | disposition home or self-care (01) ==
LOC: JD.ED 06:10
DX: N20.2 Calculus of kidney with calculus of ureter (principal); N83.202 Unspecified ovarian cyst, left side; C91.10 Chronic lymphocytic leukemia of B-cell type not having achieved remission; N84.0 Polyp of corpus uteri; E78.00 Pure hypercholesterolemia, unspecified; I12.9 Hypertensive chronic kidney disease with stage 1 through stage 4 chronic kidney disease, or unspecified chronic kidney disease; N18.9 Chronic kidney disease, unspecified; E03.9 Hypothyroidism, unspecified; E66.9 Obesity, unspecified; Z68.30 Body mass index [BMI] 30.0-30.9, adult; Z88.5 Allergy status to narcotic agent; Z88.1 Allergy status to other antibiotic agents; Z88.8 Allergy status to other drugs, medicaments and biological substances; Z79.899 Other long term (current) drug therapy
CPT/HCPCS: 36415; 74177; 76830; 80053; 81001; 83690; 84703; 85025; 96374; 96375; 99284; J1170; J2405; J7030; Q9967

== ENCOUNTER 2021-08-29 07:36 | Day surgery (SDC) | payer MEDICARE ==
[~2021-08-29 07:36] MED LIST: Lactated Ringers 1,000 ML IV SCH; Lidocaine 1% 4 ML ONE; Lidocaine 1%/Sod Bicarbonate in NS 8.4% 1 ML Syringe IDERM PRN; Midazolam 1 MG/ML 2 ML SDV ONE; Ondansetron 4 MG/2 ML SDV ONE; Propofol 200 MG/20 ML SDV ONE; Rocuronium 50 MG/5 ML Vial ONE; Sodium Chloride 0.9% 10 ML Syringe FLUSH PRN; Sodium Chloride 0.9% 10 ML Syringe FLUSH SCH; fentaNYL 250 MCG/5 ML SDV ONE
[2021-08-29] MEDS ORDERED: Scopolamine 1.5 MG Transdermal Patch TOP ONE (08:21)
[2021-08-29] MEDS ORDERED: Lidocaine 1% with EPINEPHrine 1:100,000 20 ML MDV ONE (08:44)
[2021-08-29] MEDS ORDERED: Bupivacaine 0.5% 30 ML SDV ONE (08:44)
[2021-08-29] MEDS ORDERED: Propofol 200 MG/20 ML SDV ONE (09:03)
[2021-08-29] MEDS ORDERED: Dexamethasone 4 MG/ML 5 ML MDV ONE (09:14)
[2021-08-29] MEDS ORDERED: HYDROmorphone 0.5 MG/0.5 ML Syringe ONE (09:24)
[2021-08-29] MEDS ORDERED: Lactated Ringers 1,000 ML ONE (09:31)
[2021-08-29] MEDS ORDERED: HYDROmorphone 0.5 MG/0.5 ML Syringe IVPUSH PRN (09:47)
[2021-08-29] MEDS ORDERED: Ondansetron 4 MG/2 ML SDV IVPUSH PRN ×2 (09:47→13:11)
[2021-08-29] MEDS ORDERED: fentaNYL 100 MCG/2 ML SDV IVPUSH PRN (09:47)
[2021-08-29] MEDS ORDERED: Ketorolac 30 MG/ML SDV ONE (09:50)
[2021-08-29] MEDS ORDERED: Acetaminophen/HYDROcodone 325-5 MG Tab PO ONE (10:37)
[2021-08-29 16:58] VITALS: BP 141/75; PULSE 90
== END 2021-08-29 16:30 | disposition home or self-care (01) ==
LOC: JD.SDS 07:36 → JD.MS 13:27 → JD.SDS 16:30
PROVIDERS: ATTEND Obstetrics & Gynecology
DX: D27.1 Benign neoplasm of left ovary (principal); N83.8 Other noninflammatory disorders of ovary, fallopian tube and broad ligament; C95.10 Chronic leukemia of unspecified cell type not having achieved remission; N83.202 Unspecified ovarian cyst, left side; I10 Essential (primary) hypertension; E03.9 Hypothyroidism, unspecified; E66.9 Obesity, unspecified; Z79.899 Other long term (current) drug therapy; Z88.8 Allergy status to other drugs, medicaments and biological substances; Z88.5 Allergy status to narcotic agent; Z68.41 Body mass index [BMI] 40.0-44.9, adult; Z98.890 Other specified postprocedural states
CPT/HCPCS: 36415; 58558; 58661; 80048; 85025; 86850; 86900; 86901; A9270; J1100; J1170; J1885; J2250; J2405; J2704; J2710; J3010; J3490; J7120; 00840